=== PATIENT | male | born 1985 ===

== ENCOUNTER 2021-08-15 09:08 | Outpatient (CLI) | payer SELFPAY ==
[2021-08-15 08:28] LABS: Anion Gap 6.4 mmol/L (3-11); BUN 8 mg/dL (7-18); CO2 29.6 mmol/L (21.0-32.0); CREATININE 0.8 mg/dL (0.70-1.30); Calculated LDL 90 mg/dL (<100); Chloride 104 mmol/L (98-107); Cholesterol 142 mg/dL (<200); Glucose 82 mg/dL (74-106); HDL Cholesterol 42 mg/dL (40-60); Potassium 4.1 mmol/L (3.5-5.1); Sodium 140 mmol/L (136-145); TSH 0.15 uIU/mL (0.36-3.74); Triglyceride 50 mg/dL (<150)
== END 2021-08-15 09:09 | disposition home or self-care (01) ==
LOC: LBO 08-16 09:10
PROVIDERS: Visit Provider Nurse Practitioner Family
DX: E03.9 Hypothyroidism, unspecified (principal)
CPT/HCPCS: 36415; 80048; 80061; 84443

== ENCOUNTER 2023-10-28 03:00 | Outpatient (CLI) | payer BC, SELFPAY ==
[2023-10-28 16:11] LABS: TSH 3.48 uIU/Ml (0.36-3.74)
== END 2023-10-28 03:01 | disposition home or self-care (01) ==
PROVIDERS: Visit Provider Nurse Practitioner Family
DX: E03.9 Hypothyroidism, unspecified (principal)
CPT/HCPCS: 36415; 84443

== ENCOUNTER 2025-01-05 03:31 | Outpatient (CLI) | payer OTHER, SELFPAY ==
[2025-01-05 11:58] LABS: Hemoglobin A1C 5.4 % (<5.7)
[2025-01-05 12:15] LABS: ALT 19 U/L (16-63); AST 15 U/L (15-37); Albumin 4.0 g/dL (3.4-5.0); Alkaline Phosphatase 53 U/L (46-116); Anion Gap 7.1 mmol/L (3-11); BUN 11 mg/dL (7-18); Bilirubin, Total 0.5 mg/dL (0.2-1.0); CO2 29.9 mmol/L (21.0-32.0); Calcium 9.1 mg/dL (8.5-10.1); Chloride 102 mmol/L (98-107); Cholesterol 189 mg/dL (<200); Glucose 84 mg/dL (74-106); HDL Cholesterol 49 mg/dL (>or=40); Potassium 4.3 mmol/L (3.5-5.1); Sodium 139 mmol/L (136-145); TSH 13.27 uIU/mL (0.36-3.74); Total Protein 8.0 g/dL (6.4-8.2)
== END 2025-01-05 03:32 | disposition home or self-care (01) ==
LOC: LBO 03:31
PROVIDERS: Visit Provider Nurse Practitioner Family
DX: Z00.00 Encounter for general adult medical examination without abnormal findings (principal)
CPT/HCPCS: 36415; 80053; 80061; 83036; 84443